=== PATIENT | male | born 1955 | race Caucasian/White ===

== ENCOUNTER 2020-06-16 14:22 | Emergency (ER) | payer MEDICARE, MEDICAID ==
[2020-06-16] MEDS ORDERED: HOUR PAIN PO (15:40)
[2020-06-16] MEDS ORDERED: CLONAZEP ODT0.5 MG PO (15:41)
[2020-06-16] MEDS ORDERED: CRANBERR3 PO (15:43)
[2020-06-16] MEDS ORDERED: LAMICTAL100 M1 PO (15:44)
[2020-06-16] MEDS ORDERED: QUETIAPINE FUM400 MG PO (15:45)
[2020-06-16] MEDS ORDERED: SEROQUEL100 MG PO (15:46)
[2020-06-16] MEDS ORDERED: SENEXON-S1 TAB PO (15:47)
[2020-06-16] MEDS ORDERED: TAB-A-VITE PO (15:48)
[2020-06-16] MEDS ORDERED: VENLAFAXINE37.5 M1 PO (15:49)
[2020-06-16 16:02] LABS: URINE BILIRUBIN - DIPSTICK NEGATIVE (NEGATIVE); URINE BLOOD DIPSTICK LARGE (NEGATIVE); URINE COLOR YELLOW; URINE GLUCOSE - DIPSTICK NEGATIVE (NEGATIVE); URINE KETONE NEGATIVE (NEGATIVE); URINE LEUK ESTERASE TRACE (NEGATIVE); URINE PH 5.5 (4.5-8.0); URINE PROTEIN - DIPSTICK NEGATIVE (NEG-TRACE); URINE UROBILINOGEN - DIPSTICK 0.2 E.U./dL (0.2)
[2020-06-16 16:06] LABS: URINE NITRITE - DIPSTICK NEGATIVE (Negative)
[2020-06-16] MEDS ORDERED: CIPROFLOXACN500 MG PO (16:18)
[2020-06-16 16:38] VITALS: BP 118/79
== END 2020-06-16 16:38 ==
LOC: ED 14:22
PROC: 0T9B70Z Drainage of Bladder with Drainage Device, Via Natural or Artificial Opening (ICD-10-PCS; principal; 2020-06-16)
DX: R32 Unspecified urinary incontinence (principal); G70.9 Myoneural disorder, unspecified; G40.909 Epilepsy, unspecified, not intractable, without status epilepticus; I48.91 Unspecified atrial fibrillation; F31.9 Bipolar disorder, unspecified; F41.9 Anxiety disorder, unspecified

== ENCOUNTER 2020-08-19 22:58 | Emergency (ER) | payer MEDICARE, MEDICAID ==
[~2020-08-19] VITALS: Ht 182.9 cm; Wt 83.6 kg
[~2020-08-19 22:58] MED LIST: CIPROFLOXACN500 MG PO; CLONAZEP ODT0.5 MG PO; CRANBERR3 PO; HOUR PAIN PO; LAMICTAL100 M1 PO; QUETIAPINE FUM400 MG PO; SENEXON-S1 TAB PO; SEROQUEL100 MG PO; TAB-A-VITE PO; VENLAFAXINE37.5 M1 PO
[2020-08-19] MEDS ORDERED: [UNRECOGNIZED DRUG - OTHER] RE (23:22)
[2020-08-20 07:22] VITALS: BP 148/83
== END 2020-08-20 07:28 ==
LOC: ED 22:58
PROC: 0HQ3XZZ Repair Left Ear Skin, External Approach (ICD-10-PCS; principal; 2020-08-19)
DX: S01.312A Laceration without foreign body of left ear, initial encounter (principal); G40.909 Epilepsy, unspecified, not intractable, without status epilepticus; I48.91 Unspecified atrial fibrillation; F31.9 Bipolar disorder, unspecified; F41.9 Anxiety disorder, unspecified; G70.89 Other specified myoneural disorders; W06.XXXA Fall from bed, initial encounter; Y92.003 Bedroom of unspecified non-institutional (private) residence as the place of occurrence of the external cause

== ENCOUNTER 2020-08-27 13:35 | Emergency (ER) | payer MEDICARE, MEDICAID ==
[~2020-08-27] VITALS: Ht 182.9 cm; Wt 82.0 kg
[~2020-08-27 13:35] MED LIST changes: +[UNRECOGNIZED DRUG - OTHER] RE
[2020-08-27 14:00] LABS: URINE BILIRUBIN - DIPSTICK NEGATIVE (NEGATIVE); URINE BLOOD DIPSTICK NEGATIVE (NEGATIVE); URINE COLOR YELLOW; URINE GLUCOSE - DIPSTICK NEGATIVE (NEGATIVE); URINE KETONE NEGATIVE (NEGATIVE); URINE PROTEIN - DIPSTICK NEGATIVE (NEG-TRACE); URINE UROBILINOGEN - DIPSTICK 0.2 E.U./dL (0.2)
[2020-08-27 14:07] LABS: URINE LEUK ESTERASE MODERATE (NEGATIVE); URINE NITRITE - DIPSTICK NEGATIVE (Negative)
[2020-08-27 14:08] LABS: URINE BACTERIA MODERATE hpf; URINE EPITHELIAL CELLS FEW EPI/hpf (0-FEW)
[2020-08-27] MEDS ORDERED: KEFLEX500 MG PO (14:18)
[2020-08-27 14:20] VITALS: BP 110/64
== END 2020-08-27 15:06 ==
LOC: ED 13:35
DX: T83.098A Other mechanical complication of other urinary catheter, initial encounter (principal); N39.0 Urinary tract infection, site not specified; B96.4 Proteus (mirabilis) (morganii) as the cause of diseases classified elsewhere; G40.909 Epilepsy, unspecified, not intractable, without status epilepticus; I48.91 Unspecified atrial fibrillation; F31.9 Bipolar disorder, unspecified; F41.9 Anxiety disorder, unspecified; G70.9 Myoneural disorder, unspecified; Y84.6 Urinary catheterization as the cause of abnormal reaction of the patient, or of later complication, without mention of misadventure at the time of the procedure

== ENCOUNTER 2021-01-03 21:42 | Emergency (ER) | payer MEDICARE, MEDICAID ==
[~2021-01-03] VITALS: Ht 182.9 cm; Wt 114.0 kg
[~2021-01-03 21:42] MED LIST changes: +KEFLEX500 MG PO
[2021-01-03 22:46] LABS: URINE BILIRUBIN - DIPSTICK NEGATIVE (NEGATIVE); URINE BLOOD DIPSTICK MODERATE (NEGATIVE); URINE COLOR YELLOW; URINE GLUCOSE - DIPSTICK NEGATIVE (NEGATIVE); URINE KETONE NEGATIVE (NEGATIVE); URINE PROTEIN - DIPSTICK 30 mg/dL (NEG-TRACE); URINE UROBILINOGEN - DIPSTICK 0.2 E.U./dL (0.2)
[2021-01-03 22:51] LABS: URINE LEUK ESTERASE LARGE (NEGATIVE); URINE NITRITE - DIPSTICK POSITIVE (Negative)
[2021-01-03 22:57] LABS: URINE BACTERIA MANY hpf
[2021-01-03] MEDS ORDERED: MELATONIN TR10 MG PO (23:14)
[2021-01-03] MEDS ORDERED: BANOPHEN25 MG PO (23:15)
[2021-01-03] MEDS ORDERED: CIPROFLOXACN500 MG PO (23:17)
[2021-01-04 00:30] VITALS: BP 136/72
== END 2021-01-04 00:42 | disposition home or self-care (01) ==
LOC: ED 21:42
PROC: 0T9B70Z Drainage of Bladder with Drainage Device, Via Natural or Artificial Opening (ICD-10-PCS; principal; 2021-01-03)
DX: T83.091A Other mechanical complication of indwelling urethral catheter, initial encounter (principal); N39.0 Urinary tract infection, site not specified; G40.909 Epilepsy, unspecified, not intractable, without status epilepticus; I48.91 Unspecified atrial fibrillation; F31.9 Bipolar disorder, unspecified; F41.9 Anxiety disorder, unspecified; G70.9 Myoneural disorder, unspecified; B96.89 Other specified bacterial agents as the cause of diseases classified elsewhere; Y84.6 Urinary catheterization as the cause of abnormal reaction of the patient, or of later complication, without mention of misadventure at the time of the procedure

== ENCOUNTER 2021-01-04 23:39 | Emergency (ER) | payer MEDICARE, MEDICAID ==
[~2021-01-04] VITALS: Ht 182.9 cm; Wt 82.0 kg
[~2021-01-04 23:39] MED LIST changes: +BANOPHEN25 MG PO; +MELATONIN TR10 MG PO
[2021-01-05 02:56] VITALS: BP 135/80
== END 2021-01-05 03:05 ==
LOC: ED 23:39
PROC: 0T2BX0Z Change Drainage Device in Bladder, External Approach (ICD-10-PCS; principal; 2021-01-04)
DX: T83.091A Other mechanical complication of indwelling urethral catheter, initial encounter (principal); N39.0 Urinary tract infection, site not specified; G40.909 Epilepsy, unspecified, not intractable, without status epilepticus; I48.91 Unspecified atrial fibrillation; F31.9 Bipolar disorder, unspecified; F41.9 Anxiety disorder, unspecified; G70.9 Myoneural disorder, unspecified; B96.4 Proteus (mirabilis) (morganii) as the cause of diseases classified elsewhere; Y84.6 Urinary catheterization as the cause of abnormal reaction of the patient, or of later complication, without mention of misadventure at the time of the procedure

== ENCOUNTER 2024-04-12 10:13 | Emergency (ER) | payer MEDICARE, MEDICAID ==
[~2024-04-12] VITALS: Ht 182.9 cm; Wt 87.0 kg
[2024-04-12] VITALS (7 sets, daily range): BP systolic 116–140; BP diastolic 77–101
[2024-04-12] MEDS ORDERED: LOTRISONE CREAM15 G1 EX (10:28)
== END 2024-04-12 12:03 | disposition home or self-care (01) ==
LOC: ED 10:13
DX: S30.813A Abrasion of scrotum and testes, initial encounter (principal); B35.4 Tinea corporis; G40.909 Epilepsy, unspecified, not intractable, without status epilepticus; I48.91 Unspecified atrial fibrillation; F31.9 Bipolar disorder, unspecified; F41.9 Anxiety disorder, unspecified; G70.9 Myoneural disorder, unspecified; X58.XXXA Exposure to other specified factors, initial encounter